=== PATIENT | female | born 1995 | race Caucasian/White ===

== ENCOUNTER 2024-10-30 02:00 | Inpatient (IN) | payer BC ==
[2024-10-30] MEDS ORDERED: Oxytocin/0.9 % Sodium Chloride 30 UNIT/500 ML BAG IV SCH (02:15)
[2024-10-30] MEDS: Oxytocin/0.9 % Sodium Chloride 30 UNIT/500 ML BAG IV SCH (02:28)
[2024-10-30] MEDS ORDERED: Carboprost Tromethamine 250 MCG/1 mL Vial IM PRN (02:41)
[2024-10-30] MEDS ORDERED: Water For Irrigation,Sterile 1,000 ML Container IRR PRN (02:41)
[2024-10-30 02:43] LABS: MEAN PLATELET VOLUME 10.7 fL (9.4-12.3); NRBC ABSOLUTE 0.00 K/uL (0.00-0.02); NRBC PERCENT 0.0 /100WBC (0.0-0.2); PLATELET COUNT,PLT 189 K/uL (150-400); RED BLOOD CELL COUNT 4.10 M/uL (4.10-5.30); WHITE BLOOD CELL COUNT,WBC 27.06 K/uL (3.9-11.3)
[2024-10-30] MEDS ORDERED: Lactated Ringers 1,000 ML IV SCH (02:45)
[2024-10-30 03:06] LABS: A/G RATIO 0.6 (0.9-1.6); ALANINE AMINOTRANSFERASE,ALT 22.0 IU/L (14-63); ASPARTATE AMNIOTRANSFERASE,AST 33.0 IU/L (15-37); BILIRUBIN TOTAL 1.0 mg/dL (0.2-1.0); BLOOD UREA NITROGEN,BUN 7.0 mg/dL (7.0-18.0); CARBON DIOXIDE,CO2 21.1 mmol/L (21.0-32.0); CHLORIDE,CL 97.0 mmol/L (98-107); CREATININE 0.9 mg/dL (0.6-1.0); EST CRCL DRUG DOSING (CG) 81.5 mL/min; GLUCOSE RANDOM 166.0 mg/dL (74-106); POTASSIUM,K 3.7 mmol/L (3.5-5.1); PROTEIN TOTAL,TP 6.5 g/dL (6.4-8.2); SODIUM,NA 131.0 mmol/L (136-145)
[2024-10-30] MEDS ORDERED: Aluminum Hydroxide/Magnesium Hydroxide/Simethicone Susp 30 ML Cup PO PRN (03:21)
[2024-10-30] MEDS ORDERED: Witch Hazel Medicated Pads 40/Jar TOP PRN (03:21)
[2024-10-30] MEDS ORDERED: Benzocaine/Menthol 20%-0.5% Spray 78 GM Cannister TOP PRN (03:21)
[2024-10-30] MEDS ORDERED: Ondansetron 4 MG/2 ML SDV IVPUSH PRN (03:21)
[2024-10-30] MEDS ORDERED: Lanolin 100% Cream 7 GM Tube TOP PRN (03:21)
[2024-10-30 03:22] LABS: INR < 0.93 (0.86-1.11); PTT,PARTIAL THROMBOPLSTIN TIME 25.7 SEC (23.9-30.7)
[2024-10-30 03:47] LABS: ESTIMATED GFR 88.0 mL/min (>60)
[2024-10-30] MEDS: ceFAZolin 1 GM in Water For Injection, Sterile 10 ML IVPUSH ONE ×2 (04:50→05:00)
[2024-10-30] MEDS: Oxytocin/0.9 % Sodium Chloride 30 UNIT/500 ML BAG ONE (05:00)
== END 2024-10-30 15:30 | disposition home or self-care (01) | DRG 560 ==
LOC: MW.OB 02:00
PROVIDERS: ADMIT Obstetrics & Gynecology; ATTEND Obstetrics & Gynecology
PROC: 10E0XZZ Delivery of Products of Conception, External Approach (ICD-10-PCS; principal; 2024-10-30)
PROC: 0KQM0ZZ Repair Perineum Muscle, Open Approach (ICD-10-PCS; 2024-10-30)
DX: Z39.0 Encounter for care and examination of mother immediately after delivery (principal); O48.0 Post-term pregnancy; Z3A.41 41 weeks gestation of pregnancy; Z37.0 Single live birth; Z79.899 Other long term (current) drug therapy; O70.1 Second degree perineal laceration during delivery; O73.0 Retained placenta without hemorrhage; O72.1 Other immediate postpartum hemorrhage
CPT/HCPCS: 36415; 59414; 80053; 85027; 85384; 85610; 85730; 86592; 86850; 86900; 86901; J0690; J2003; J2590